=== PATIENT | male | born 1965 | race Caucasian/White ===

== ENCOUNTER 2021-09-28 06:32 | Day surgery (SDC) | payer OTHER ==
[~2021-09-28] VITALS: Ht 175 cm; Wt 84.0 kg
[~2021-09-28 06:32] MED LIST: CONSTULOSE10 GM/15 M PO; FLEXERIL5 MG PO; FLONASE ALLER15.8 ML; FLUOXETINE HCL10 MG PO; FOLIC ACID1 M1 PO; LASIX20 MG PO; MAGNESIUM OXID400 MG PO; NADOLOL 20MG TA20 MG PO; POTASSIUM CHLO10 ME1 PO; PRILOSEC20 MG PO; SPIRONOLACTONE50 M1 PO; VITAMIN B-121000 MC1 PO; WARFARIN SODIUM2 MG PO; XIFAXAN550 MG PO; ZYRTEC10 M3 PO
[2021-09-28] MEDS ORDERED: LOVENOX80 MG/0.8 SQ (06:56)
[2021-09-28 07:43] LABS: INR 1.59 (0.9-1.2); PROTHROMBIN TIME 18.2 SECONDS (11.8-13.4); PTT 41.7 SECONDS (24.4-34.7)
[2021-09-28 13:45] LABS: INR 1.68 (0.9-1.2)
[2021-09-29 06:47] LABS: BASOPHIL 0.1 % (0-2); EOSINOPHIL 0 % (0-5); HCT 35.2 % (42.0-52.0); HGB 11.9 g/dl (13.2-18.0); LYMPHOCYTE 12.2 % (15-48); MCH 33.5 pg (25.0-31.0); MCHC 33.8 g/dL (32.0-36.0); MCV 99.2 fL (78.0-100.0); MONOCYTE 13.7 % (0-12); MPV 10.8 fL (6.0-9.5); NEUTROPHIL 73.7 % (41-80); NRBC 0; PLT 122 K/uL (150-400); RBC 3.55 M/uL (4.70-6.00); RDW 15.7 % (11.5-14.0); WBC 12.4 K/uL (4.0-10.5)
[2021-09-29 07:05] LABS: BUN/CREAT RATIO (CALC) 15.9 RATIO; CREATININE 1.07 mg/dL (0.67-1.17); POTASSIUM 5.4 mmol/L (3.5-5.1)
[2021-09-29 07:49] LABS: INR 1.67 (0.9-1.2)
[2021-09-29] MEDS ORDERED: OXYCODONE-ACET1 EAC1 PO (09:28)
[2021-09-29] MEDS ORDERED: FEOSOL325 MG PO (09:28)
[2021-09-29] MEDS ORDERED: LOVENOX80 MG/0.8 SC (09:28)
--- NOTE | 2021-09-29 11:00 | NUR ---
PT. TO D/C TO THE HOME OF HIS SISTER IN [place]. HE WILL STAY WITH HER TO RECUP AND THEN RETURN TO HIS HOME IN [facility]. [facility] WILL PROVIDE A NURSE AND PT TO PT THROUGH THE [place] OFFICE. WHEN PT. GOES BACK TO HIS HOME IN [facility] THE [facility] IN [facility] WILL PROVIDE SERVICE TO THE PT. PT. HAS A ROLLING WALKER. PT. SIGNED A CHOICE FORM.
--- NOTE | 2021-09-29 11:11 | NUR ---
ORDER SUBMITTED TO VALERIANO WITH [facility] FOR PT. THIS DATE.
--- NOTE | 2021-09-29 11:30 | NUR ---
DURING DISCHARGE INSTRUCTIONS PATIENT EDUCATED ON LOVENOX AND HE STATED HE HAS DONE THEM AT HOME IN THE PAST
--- NOTE | 2021-09-29 13:03 | NUR ---
PER OMAR, NURSE, PT HAS TOLD HER THAT HE KNOWS HOW TO DO THE LOVENOX INJECTIONS HE HAS HAD TO DO THEM BEFORE. OMAR ADVISED PT THAT [facility] WOULD NOT BE OUT TO SEE HIM UNTIL SUNDAY. PT. ACKNOWLED UNDERSTANDING. TC WITH VALERIANO AT [facility]. SHE IS AWARE THAT PT. INR'S ARE DAILY.
== END 2021-09-29 16:18 | disposition home health service (06) ==
LOC: CANPRESDC → FMS 06:32 → FAS 06:32 → FMS 09:12 → FAS 11:00
PROVIDERS: Anesthesiology; Nurse Practitioner Adult Health; Orthopaedic Surgery
DX: M16.12 Unilateral primary osteoarthritis, left hip (principal); I10 Essential (primary) hypertension; M87.852 Other osteonecrosis, left femur; Z79.01 Long term (current) use of anticoagulants; Z95.2 Presence of prosthetic heart valve; Z88.0 Allergy status to penicillin; E78.00 Pure hypercholesterolemia, unspecified; E78.1 Pure hyperglyceridemia; K70.30 Alcoholic cirrhosis of liver without ascites
CPT/HCPCS: 36415; 73501; 76000; 80048; 85025; 85610; 85730; 86850; 86900; 86901; 94010; 97110; 97162; 97166; 97530-GP; 97535; J0171; J1100; J1170; J1650; J1885; J2250; J2270; J2405; J2704; J2795; J3010; J7120